=== PATIENT | male | born 1955 | race Caucasian/White ===

== ENCOUNTER 2021-03-12 12:53 | Emergency (ER) | payer MEDICARE ==
[~2021-03-12] VITALS: Ht 185.4 cm; Wt 110.0 kg
[2021-03-12 13:00] VITALS: BP 140/74
[2021-03-12] MEDS ORDERED: AUGM875T28 PO (16:26)
[2021-03-12] MEDS ORDERED: LIDO2SOL9 SSP (16:26)
== END 2021-03-12 16:34 | disposition home or self-care (01) ==
LOC: M ED 12:53
DX: K04.7 Periapical abscess without sinus (principal); E11.9 Type 2 diabetes mellitus without complications; I10 Essential (primary) hypertension; E03.9 Hypothyroidism, unspecified; Z86.73 Personal history of transient ischemic attack (TIA), and cerebral infarction without residual deficits